=== PATIENT | male | born 1960 | race Caucasian/White ===

== ENCOUNTER → 2016-07-23 | Outpatient (CLI) | payer OTHER | LOC: FLAB 14:39 | PROVIDERS: ATTEND Orthopaedic Surgery Orthopaedic Surgery of the Spine | DX: M47.892 Other spondylosis, cervical region (principal); M46.02 Spinal enthesopathy, cervical region; M41.86 Other forms of scoliosis, lumbar region; M51.36 Other intervertebral disc degeneration, lumbar region ==

== ENCOUNTER 2017-06-06 08:47 | Observation (INO) | payer OTHER ==
--- NOTE | 2017-06-06 08:59 | CPEKG ---
Heart Rate: 75 RR Interval: 800 P-R Interval: 152 QRSD Interval: 86 QT Interval: 372 QTC Interval: 416 P [place]: 62 QRS [place]: 36 T Wave [place]: 33 EKG Severity - NORMAL ECG - EKG Impression: SINUS RHYTHM Electronically Signed By: Santos Garcia 06-Jun-2017 11:02:16
[2017-06-06] MEDS ORDERED: NITROGLYCERIN 0.4 MG BTL SL PRN (09:10)
[2017-06-06 09:15] LABS: PLATELET COUNT 207 10^3/uL (150-400)
--- NOTE | 2017-06-06 09:24 | EDPHY ---
H & P Stated Complaint: c/o mid duke CP with deep breath Time Seen by Provider: 06/06/17 08:52 HPI/ROS: This patient describes abrupt onset of chest pain while inhaling during a conversation while standing at work. This occurred 45 min prior to arrival and he reports the pain has since that time been steady at 3/10 ache but becomes sharp with a deep breath. He also notes that while supine he has increase in pain when he flexes his neck forward. He notes no other exacerbating or alleviating factors. He reports having brief episodes of pain like this in the past the typically resolve within minutes. He has never had ongoing pain of this nature before. His anginal equivalent is left arm ache. He has not had any recent left arm ache. He denies any other associated symptoms except for onset of diaphoresis particularly in his hands this morning. His drove him here by private vehicle for evaluation of the symptoms. ROS: Constitutional: No fevers chills or fatigue. HEENT: No recent URI symptoms. Pulmonary: No cough. No shortness of breath while at rest. Cardiovascular: He reports dyspnea on exertion that is been present for some time with no recent change. No heart palpitations. No leg swelling or pain. Neuro: Patient complains of burning discomfort and paresthesias to his left foot now for weeks. This is moderate discomfort. GI: No nausea or vomiting. No abdominal pain. No recent GERD symptoms Integumentary: Diaphoresis. Endocrine: No complaints Complete review of symptoms otherwise negative. Source: Patient Exam Limitations: No limitations - Personal History Current Tetanus Diphtheria and Acellular Pertussis (TDAP): Yes - Medical/Surgical History PMH: Coronary artery disease with 2 cardiac stents placed by Dr. Champion in 2009. Dyslipidemia Hypertension Paroxysmal AFib Other PMH: HTN, CARDIAC STENTS, MENNEIRE'S DX, GALL BLADDER - Family History Significant Family History: Heart disease - Social History Smoking Status: Never smoked Alcohol Use: None Drug Use: None - Physical Exam Exam: Vital signs are normal exception of hypertension General Appearance: Alert, no distress. Eyes: Pupils equal and round no pallor or injection. ENT, Mouth: Mucous membranes moist. Respiratory: There are no retractions, lungs are clear to auscultation. Cardiovascular: Regular rate and rhythm. No murmur gallop or rub. No JVD or peripheral edema. He has no chest wall tenderness Gastrointestinal: Abdomen is soft and nontender, no masses, bowel sounds normal. Neurological: GCS 15 Skin: Warm and dry, no rashes. Musculoskeletal: Neck is supple nontender. Extremities are symmetrical, full range of motion. Psychiatric: Mood and affect are normal DIFFERENTIAL DIAGNOSIS: After history and physical exam differential diagnosis was considered for pulmonary embolism, PE, pneumonia, pleurisy, coronary syndrome/myocardial ischemic disease, musculoskeletal pain, GERD, aortic dissection Constitutional: Initial Vital Signs Temperature (C) 36.6 C 06/06/17 08:52 Heart Rate 78 06/06/17 08:52 Respiratory Rate 18 06/06/17 08:52 Blood Pressure 169/98 H 06/06/17 08:52 O2 Sat (%) 97 06/06/17 08:52 O2 Delivery Mode Room Air Allergies/Adverse Reactions: No Known Allergies Allergy (Unverified 09/09/14 18:02) Home Medications: Medication Instructions Recorded CARVEDILOL PHOSPHATE [Coreg Cr] 80 mg PO 11/07/11 Clopidogrel Bisulfate [Plavix (RX)] 75 mg PO DAILY 11/07/11 Lisinopril [Zestril 5 mg (RX)] 5 mg PO DAILY 11/07/11 Lovastatin 10 mg PO 11/07/11 Medical Decision Making - Diagnostics EKG Interpretation: 12 lead EKG performed shortly after arrival at 857 reveals sinus rhythm at 75 Intervals: Normal throughout [place]: Normal throughout ST segments: Normal throughout Overall assessment normal EKG Repeat EKG performed at 9:49 a.m. after nitroglycerin to rule out interval change reveals sinus rhythm at 70 Intervals: Normal throughout [place]: Normal throughout ST segments: Normal throughout Overall assessment normal EKG without interval change by my interpretation A 30 EKGs performed shortly prior to the patient's transfer given ongoing chest pain rule out any interval change Sinus rhythm Intervals normal throughout [place]: Normal throughout ST segments: Normal throughout Overall assessment: Normal EKG without interval change by my interpretation Imaging Results: Imaging Impressions Chest X-Ray 06/06/17 09:11 Impression: Normal. Chest/Thorax CTA 06/06/17 09:40 Impression: 1. There is no evidence of aortic aneurysm or dissection. 2. There is no CT evidence of pulmonary artery thromboemboli. 3. LAD coronary artery atherosclerotic calcification. Findings were discussed with ANNETTE WALSH MD at 10:31, on 06/06/2017. Imaging: Discussed imaging studies w/ director call center sales Radiologist (CT angio chest. I also reviewed his these images myself), I viewed and interpreted images myself ( Chest x-ray) ED Course/Re-evaluation: IV, monitor He had 2 adult aspirins prior to arrival Supple nitroglycerin Q 5 min x3 with partial relief of discomfort. He reports that is now mild but persistent-he will put a number on a but says it is less than the 3/10 when he came in though he is still having intermittent pains up to 8/10. Repeat EKG performed at 9:49 a.m. after nitroglycerines reveals no interval change from the 1st EKG by my read with still no EKG evidence acute ischemia. The patient declines further analgesics at 9:50 a.m. but will except trial of Maalox. Given his history of hypertension and atherosclerosis will proceed with CT angio chest to rule out aortic dissection. Patient remains comfortable but does have a mild ongoing discomfort after his CT angio chest. He still declines any further analgesics. I spoke with Laury Woodward, mid-level practitioner with the hospitalist group accepts this patient for transfer to [facility] to Dr. Jimenez to a PCU bed. We also have a page out to cardiology-physician on-call for Dr. Champion, the patient's punch machine operator for consult. Discussion: Patient with pleuritic pain and history of known coronary disease and stents warranting admission for ongoing pain. Remains hemodynamically stable here. I held beta-shilpa given normal pulse and blood pressure after nitrates. We ruled out aortic dissection and PE with CT angiogram. His 1st troponin is normal. Appreciate no ischemic changes on his EKG. Difficult diagnosis for his ongoing pain includes potential atypical anginal pain with early coronary syndrome versus pleurisy or other. Still awaiting a bed at 11:33 a.m.. Patient re-evaluated with 3/10 steady chest discomfort-unchanged substernal location nonradiating with no additional symptoms. The patient now accepts morphine. Will treat him with 5 mg morphine dose and saline bolus for systolic pressure of 100. I spoke with Dr. Heber Randhawa-punch machine operator on-call for Dr. Champion at 11:40 a.m.. He agrees with plan for admission and they will consult in the hospital. - Data Points Laboratory Results: Laboratory Results 06/06/17 09:12 06/06/17 09:12 06/06/17 06/06/17 06/06/17 09:12 09:12 09:12 WBC 5.53 10^3/uL 10^3/uL (3.80-9.50) RBC 5.42 10^6/uL 10^6/uL (4.40-6.38) Hgb 16.4 g/dL g/dL (13.7-17.5) Hct 46.8 % % (40.0-51.0) MCV 86.3 fL fL (81.5-99.8) MCH 30.3 pg pg (27.9-34.1) MCHC 35.0 g/dL g/dL (32.4-36.7) RDW 13.2 % % (11.5-15.2) Plt Count 207 10^3/uL 10^3/uL (150-400) MPV 9.6 fL fL (8.7-11.7) Neut % (Auto) 62.5 % % (39.3-74.2) Lymph % (Auto) 26.8 % % (15.0-45.0) [place] % (Auto) 7.4 % % (4.5-13.0) Eos % (Auto) 2.2 % % (0.6-7.6) Baso % (Auto) 0.7 % % (0.3-1.7) Nucleat RBC Rel Count 0.0 % % (0.0-0.2) Absolute Neuts (auto) 3.46 10^3/uL 10^3/uL (1.70-6.50) Absolute Lymphs (auto) 1.48 10^3/uL 10^3/uL (1.00-3.00) Absolute Monos (auto) 0.41 10^3/uL 10^3/uL (0.30-0.80) Absolute Eos (auto) 0.12 10^3/uL 10^3/uL (0.03-0.40) Absolute Basos (auto) 0.04 10^3/uL 10^3/uL (0.02-0.10) Absolute Nucleated RBC 0.00 10^3/uL 10^3/uL (0-0.01) Immature Gran % 0.4 % % (0.0-1.1) Immature Gran # 0.02 10^3/uL 10^3/uL (0.00-0.10) PT 12.7 SEC SEC (12.0-15.0) INR 0.96 (0.83-1.16) APTT 26.4 SEC SEC (23.0-38.0) D-Dimer 0.38 ug/mLFEU ug/mLFEU (0.00-0.50) Sodium 143 mEq/L mEq/L (135-145) Potassium 4.1 mEq/L mEq/L (3.5-5.2) Chloride 107 mEq/L mEq/L (97-110) Carbon Dioxide 18 mEq/l L mEq/l (22-31) Anion Gap 18 mEq/L H mEq/L (8-16) BUN 15 mg/dL mg/dL (7-23) Creatinine 0.8 mg/dL mg/dL (0.7-1.3) Estimated GFR > 60 Glucose 100 mg/dL mg/dL (70-100) Calcium 8.9 mg/dL mg/dL (8.5-10.4) Troponin I < 0.012 ng/mL ng/mL (0.000-0.034) Medications Given: Nitroglycerin (Nitrostat) 0.4 mg SL Q5M PRN PRN Reason: Chest Pain Last Admin: 06/06/17 09:17 Dose: 0.4 mg Discontinued Medications Al Hydroxide/Mg Hydroxide (Maalox Susp) 30 ml PO EDNOW ONE Stop: 06/06/17 09:57 Last Admin: 06/06/17 10:00 Dose: 30 ml Sodium Chloride (Ns) 1,000 mls @ 0 mls/hr IV ONCE ONE; Wide Open PRN Reason: Protocol Stop: 06/06/17 11:33 Last Admin: 06/06/17 11:59 Dose: 1,000 mls Morphine Sulfate (Morphine) 5 mg IVP ONCE ONE Stop: 06/06/17 11:33 Last Admin: 06/06/17 11:54 Dose: 5 mg Nitroglycerin (Nitro-Bid 2%) 0.5 inch TP EDNOW ONE Stop: 06/06/17 09:45 Last Admin: 06/06/17 09:56 Dose: 0.5 inch Departure - Departure Disposition: [facility] Inpatient Acute Clinical Impression: History of coronary artery stent placement Chest pain Qualifiers: Chest pain type: unspecified Qualified Code(s): R07.9 - Chest pain, unspecified Condition: Fair
[2017-06-06 09:26] LABS: INR 0.96 (0.83-1.16); PROTIME(PATIENT) 12.7 SEC (12.0-15.0)
[2017-06-06] MEDS ORDERED: NITROGLYCERIN 2% 1 GM PACKET TP ONE (09:44)
[2017-06-06] MEDS ORDERED: IOPAMIDOL (ISOVUE 370) 100 ML BTL IV ONE (09:51)
[2017-06-06] MEDS ORDERED: MAG HYDROX/AL HYDROX/SIMETH 30 ML UDCUP PO ONE (09:56)
--- NOTE | 2017-06-06 10:38 | CPEKG ---
Heart Rate: 70 RR Interval: 857 P-R Interval: 156 QRSD Interval: 82 QT Interval: 360 QTC Interval: 389 P [place]: 48 QRS [place]: 27 T Wave [place]: 34 EKG Severity - NORMAL ECG - EKG Impression: SINUS RHYTHM Electronically Signed By: Santos Garcia 06-Jun-2017 11:01:59
[2017-06-06] MEDS ORDERED: NS 1,000 ML IV ONE (11:32)
--- NOTE | 2017-06-06 11:47 | CPEKG ---
Heart Rate: 64 RR Interval: 938 P-R Interval: 156 QRSD Interval: 88 QT Interval: 392 QTC Interval: 405 P [place]: 51 QRS [place]: 20 T Wave [place]: 23 EKG Severity - NORMAL ECG - EKG Impression: SINUS RHYTHM Electronically Signed By: Santos Garcia 06-Jun-2017 13:30:37
[2017-06-06] MEDS ORDERED: ONDANSETRON 4 MG/2 ML VIAL IVP PRN (13:11)
[2017-06-06] MEDS ORDERED: ONDANSETRON DISINTEGRATING 4 MG TAB PO PRN (13:11)
[2017-06-06] MEDS ORDERED: NS 500 ML IV ONE (14:01)
--- NOTE | 2017-06-06 14:14 | PDCARCONS ---
Cardiology Consult Reason for Consult: Chest pain, known CAD. Chief Complaint: Chest pain. Requesting Physician: History of Present Illness: 56-year-old male with known coronary artery disease. He initially presented with angina back in 2009. At that time he underwent PCI and stenting of the LAD by Dr. Rashid Champion. He has been followed regularly by Dr. Champion. Risk factors in addition to his age and gender include hypertension, hyperlipidemia, poor diet and sedentary lifestyle. He is admitted with symptoms of chest discomfort. He states that as part of his new year's resolution he took up an exercise program. Prior to the of the year he was nearly completely sedentary. He has been exercising regularly. He notes that he has significant exertional dyspnea which he notes with walking as well as climbing stairs. He has no resting symptoms and denies orthopnea, PND and cough. Occasionally he does have mild edema. Today he noted the abrupt onset of chest pain. This began about 8 o'clock this morning. He describes a sensation of a sharp pain immediately to the left of his sternum. He feels that he would like to places finger between the ribs and rubbed deeply to try to get some relief. The pain is worse with deep inspiration and occasionally worse when he places his chin toward his chest or rotates his head to 1 side. He also notes a slight pain with cough although he has not have a a regular cough. He has not injured his chest recently. The pain is not provoked with physical activity. There is no positional component. He has not had any fever, chills or sweats. He notes no hemoptysis. This pain is different from the pain that he has had in the past. He has noted occasional episodes of left arm discomfort which is similar to his anginal quality chest pain that he experienced in 2009. The last episode he had of this was in March and prior to that this last summer. These episodes tend to be spontaneous in nature. Because of the discomfort [facility] There he was evaluated. His ECG and cardiac enzymes were negative. He had a chest x-ray and CT scan that were also noted to be normal. Subsequently he has been transferred over to our institution. At the present time he states his pain is nearly completely resolved. History Information - Allergies/Home Medication List Allergies/Adverse Reactions: No Known Allergies Allergy (Unverified 09/09/14 18:02) Home Medications: CARVEDILOL PHOSPHATE [Coreg Cr] 80 mg PO 11/07/11 [Last Taken Unknown] Clopidogrel Bisulfate [Plavix (RX)] 75 mg PO DAILY 11/07/11 [Last Taken Unknown] Lisinopril [Zestril 5 mg (RX)] 5 mg PO DAILY 11/07/11 [Last Taken Unknown] Lovastatin 10 mg PO 11/07/11 [Last Taken Unknown] I have personally reviewed and updated: family history, medical history, social history, surgical history Past Medical History: Coronary artery disease, hypertension, hyperlipidemia, borderline type 2 diabetes mellitus. - Surgical History Reports: no pertinent surgical hx - Family History Positive for: CAD - Social History Smoking Status: Never smoked Alcohol Use: None Drug Use: None JOB Risk Evaluation age greater or equal to 65: no greater or equal to 3 CAD risk factors: yes known CAD(stenosis greater or eqaul to 50%): no ASA use in past 7 days: yes severe angina(greater or equal to 2 episodes in 24hrs): no EKG ST changes greater or equal to 0.5mm: no positive cardiac marker: no Total Score: 2 JOB Score: 8.3% risk Physical Exam Physical Exam: Temp Pulse Resp BP Pulse Ox 36.4 C 73 18 136/91 H 94 06/06/17 12:56 06/06/17 12:56 06/06/17 12:56 06/06/17 12:56 06/06/17 12:56 Constitutional: no apparent distress Ears, Nose, Mouth, Throat: moist mucous membranes Cardiovascular: regular rate and rhythym, no murmur, rub, or gallop Peripheral Pulses: 2+: carotid (R), carotid (L) Respiratory: no respiratory distress, clear to auscultation Gastrointestinal: normoactive bowel sounds, soft, non-tender abdomen Genitourinary: no bladder fullness Skin: warm, normal color, No mottled Musculoskeletal: full muscle strength Neurologic: AAOx3 Psychiatric: interacting appropriately, not anxious, not encephalopathic Lab and Imaging 06/06/17 09:12 06/06/17 09:12 WBC 5.53 10^3/uL (3.80-9.50) 06/06/17 09:12 RBC 5.42 10^6/uL (4.40-6.38) 06/06/17 09:12 Hgb 16.4 g/dL (13.7-17.5) 06/06/17 09:12 Hct 46.8 % (40.0-51.0) 06/06/17 09:12 MCV 86.3 fL (81.5-99.8) 06/06/17 09:12 MCH 30.3 pg (27.9-34.1) 06/06/17 09:12 MCHC 35.0 g/dL (32.4-36.7) 06/06/17 09:12 RDW 13.2 % (11.5-15.2) 06/06/17 09:12 Plt Count 207 10^3/uL (150-400) 06/06/17 09:12 MPV 9.6 fL (8.7-11.7) 06/06/17 09:12 Neut % (Auto) 62.5 % (39.3-74.2) 06/06/17 09:12 Lymph % (Auto) 26.8 % (15.0-45.0) 06/06/17 09:12 [place] % (Auto) 7.4 % (4.5-13.0) 06/06/17 09:12 Eos % (Auto) 2.2 % (0.6-7.6) 06/06/17 09:12 Baso % (Auto) 0.7 % (0.3-1.7) 06/06/17 09:12 Nucleat RBC Rel Count 0.0 % (0.0-0.2) 06/06/17 09:12 Absolute Neuts (auto) 3.46 10^3/uL (1.70-6.50) 06/06/17 09:12 Absolute Lymphs (auto) 1.48 10^3/uL (1.00-3.00) 06/06/17 09:12 Absolute Monos (auto) 0.41 10^3/uL (0.30-0.80) 06/06/17 09:12 Absolute Eos (auto) 0.12 10^3/uL (0.03-0.40) 06/06/17 09:12 Absolute Basos (auto) 0.04 10^3/uL (0.02-0.10) 06/06/17 09:12 Absolute Nucleated RBC 0.00 10^3/uL (0-0.01) 06/06/17 09:12 Immature Gran % 0.4 % (0.0-1.1) 06/06/17 09:12 Immature Gran # 0.02 10^3/uL (0.00-0.10) 06/06/17 09:12 PT 12.7 SEC (12.0-15.0) 06/06/17 09:12 INR 0.96 (0.83-1.16) 06/06/17 09:12 APTT 26.4 SEC (23.0-38.0) 06/06/17 09:12 D-Dimer 0.38 ug/mLFEU (0.00-0.50) 06/06/17 09:12 Sodium 143 mEq/L (135-145) 06/06/17 09:12 Potassium 4.1 mEq/L (3.5-5.2) 06/06/17 09:12 Chloride 107 mEq/L (97-110) 06/06/17 09:12 Carbon Dioxide 18 mEq/l (22-31) L 06/06/17 09:12 Anion Gap 18 mEq/L (8-16) H 06/06/17 09:12 BUN 15 mg/dL (7-23) 06/06/17 09:12 Creatinine 0.8 mg/dL (0.7-1.3) 06/06/17 09:12 Estimated GFR > 60 06/06/17 09:12 Glucose 100 mg/dL (70-100) 06/06/17 09:12 Calcium 8.9 mg/dL (8.5-10.4) 06/06/17 09:12 Troponin I < 0.012 ng/mL (0.000-0.034) 06/06/17 09:12 Visualized and Interpreted Chest x-ray results: Yes Chest X-ray Interpretation: no infiltrate Visualized and Interpreted imaging results: Yes Visualized and Interpreted EKG results: Yes EKG Interpretation: Positive for: normal sinsus rhythm. Negative for: NS ST wave abnormalities, ST elevation Telemetry: Normal sinus rhythm. A/P Assessment: 56-year-old male with known CAD and prior PCI/stenting of the LAD in 2009 who presents now with atypical chest discomfort. He has had several episodes of left-sided sharp well-localized pain which is clearly pleuritic in nature. His workup thus far includes a CT scan and chest x-ray as well as ECG and cardiac enzymes all of which have been normal. I think it is very unlikely that his current presentation represents an acute coronary syndrome. Additionally, an infectious process such as pneumonia, PE, aortic dissection and pneumothorax have all been excluded. At this point I think his pain is either a representation of inflammation of the pleura or pericardium or potentially simply musculoskeletal. He also has symptoms of exertional dyspnea which have been present now for several months since he took up an exercise program. I think this likely represents inactivity and deconditioning. Plan: 1. He will be admitted to telemetry monitored. 2. Will restart his home medications. 3. His pain can be treated with p.r.n. nonsteroidal anti-inflammatory agents or morphine as needed. 4. We will trend his cardiac enzymes. Additionally, we will plan to check inflammatory markers, fasting lipids and hemoglobin A1c. 5. I have ordered an echocardiogram. 6. Depending on the results of the above workup further evaluation may include stress myocardial perfusion imaging or potentially cardiac catheterization.
[2017-06-06] MEDS: ACETAMINOPHEN 325 MG TAB PO PRN (14:42)
--- NOTE | 2017-06-06 14:48 | GHP ---
[f rep st] HISTORY AND PHYSICAL DATE OF ADMISSION: 06/06/2017 CHIEF COMPLAINT: Chest pain. HISTORY OF PRESENT ILLNESS: A 57-year-old male, with a history of coronary artery disease status pos t stenting approximately 10 years ago, who presents with sudden onset of sharp ice pick type pain at the left sternal border. Patient reports that it came on while taking a deep breath at work, spontan eously resolved with expiration. Patient reported recurrence of this ice pick type pain multiple tony es through the course of that hour and then noted some associated palm sweatiness bilaterally. It wa s the combination of these symptoms that prompted his evaluation in the emergency department. He con tinued to have intermittent pain, provoked by deep inspiration or head movements or lateral movement of his neck. During my interview, the patient is chest pain free. Patient reports 2 or 3 episodes o f knot-like arm pain similar to his MD 10 years ago, but less severe. He experienced these episodes associated with exertion. They spontaneously resolved and then did not predictably recur. He report s windlessness with activity but, otherwise, no other exertionally symptoms. Reports lower extremity edema symmetrically at the end of days with travel or a lot of ambulation. Denies any changes in hi s bowel habits. Denies any dysuria, hematuria. Denies recent fevers, chills, upper respiratory infe ctions, cough, runny nose, or sore throat. PAST MEDICAL HISTORY: 1. Coronary artery disease status post stenting. 2. Hypertension. 3. Obesity. 4. Hyperlipidemia. SOCIAL HISTORY: Negative for tobacco. Negative for alcohol. Negative for illicit drugs or marijuan a. FAMILY HISTORY: Positive for heart attack in his sister in her 40s. REVIEW OF SYSTEMS: A 10-point review of systems is negative with the exception of that reported in t he HPI. PHYSICAL EXAMINATION: VITAL SIGNS: Blood pressure 136/91, heart rate 73, respiratory rate 18, 94% o n room air, 36.4. GENERAL: This is a 57-year-old male in no acute distress. HEENT: Notable for mo ist mucous membranes. Eye exam is negative for any icterus. CARDIAC: Patient is regular rate and r hythm. Quiet systolic murmur is appreciated. PULMONARY: Clear to auscultation bilaterally. GASTRO INTESTINAL: Patient is obese. Positive bowel sounds. Nontender to palpation. MUSCULOSKELETAL: No table for 1+ pitting edema bilaterally of the lower extremities to mid thomas. SKIN: Negative for any rashes. NEUROLOGIC: He is alert and oriented x3. PSYCHIATRIC: He is pleasant and cooperative on interview and examination. DATA: White count 5.5, hematocrit 46.8, platelets of 207. Creatinine is 0.8. Troponin less than 0. 012. EKG, which I personally reviewed and interpreted, shows sinus rhythm, normal axis, normal inter vals, with no acute ST-T changes. CTA of the chest, which I personally reviewed and interpreted, sadi ws no pulmonary embolism. Radiology describes the large vessels of the chest as normal. There are a lso no infiltrates or edema. ASSESSMENT AND PLAN: This is a 57-year-old male with coronary artery disease, presenting with chest pain. 1. Acute chest pain by descriptor. Sounds more pleuritic or pericardial in nature, based on breathi ng and movement as a provocation. Initial troponin and EKG are reassuring. However, symptoms did ju st begin approximately 4 hours ago. Will cycle serial troponins. Follow the patient on telemetry. Will check an ESR, CRP to rule out possible pericardial involvement. If the patient rules out this e vening, will order a treadmill Lexiscan in the morning. Will continue his home medications which inc lude Plavix, carvedilol, and lovastatin, as well as lisinopril. 2. Obesity. Suspect, based on symptoms, the patient may have sleep apnea. Have ordered nocturnal s leep study. 3. Hypertension. Patient is currently normotensive. Will continue his low-dose carvedilol and susan nopril once reconciled. 4. Hyperlipidemia. Have ordered lipids for the a.m. 5. Borderline diabetes. Have sent a hemoglobin A1c. 6. Prophylaxis with Lovenox. 7. Diet cardiac. 8. Disposition. I expect in less than 2 midnights if patient rules out and has negative cardiac str ess testing. I have discussed the case with Dr. Randhawa from Cardiology. We will initiate workup this evening and plan on stress testing in the morning if he rules out. /[id number]/MODL
--- NOTE | 2017-06-06 14:59 | ECHO ---
[email or web address] [address] [address] Main: [phone] Fax: Transthoracic Echocardiogram Name: ANNETTE MINER MR#: [id number] Study Date: 06/06/2017 Study Time: 02:17 PM Date of : 1960 Age: 57 year(s) Height: 177.8 cm (70 in.) Weight: 120.2 kg (265 lb.) BSA: 2.35 m2 Gender: Male Examination: Echo Indication: chest pain h/o cad/stents Image Quality: Technically Difficult Contrast: Requested by: Allison Rankin BP: 136 mmHg/91 mmHg Heart Rate: Rhythm: Normal sinus rhythm Indication: chest pain h/o cad/stents Procedure Staff Weight Training Instructor: Keya Graff [facility] Reading Physician: Jesus Elise Requesting Provider: Conclusions: Normal study Measurements: Chambers Valvular Assessment AV/MV Valvular Assessment TV/PV Normal Normal Normal Name Value Range Name Value Range Name Value Range Ao Saundra (MM): 3.2 cm (2.2 cm-3.7 AV Vmax: 1.76 m/s (1 m/s-1.7 PV Vmax: 1.22 m/s (0.6 m/s-0.9 cm) m/s) m/s) IVSd (2D): 0.9 cm (0.6 cm-1.1 AV maxP mmHg ( - ) PV PGmax: 6 mmHg ( - ) cm) LVOT Vmax: 1.22 m/s (0.7 m/s-1.1 LVDd (2D): 3.9 cm (4.2 cm-5.9 m/s) cm) MV E Vmax: 0.72 m/s ( - ) LVDs (2D): 2.6 cm (2.1 cm-4 MV A Vmax: 0.70 m/s ( - ) cm) MV E/A: 1.03 ( - ) LVPWd (2D): 1.0 cm (0.6 cm-1 cm) LVEF (BP): 65 % (>=55 %) RVDd(2D): 4.1 cm (1.9 cm-3.8 cmmm) Continued Measurements: Chambers Valvular Assessment AV/MV Name Value Name Value LADs Lon.0 cm MV DecTime: 197 m/s LA Area: 17.1 cm2 MV E' Septal: 0.09 m/s LA Volume: 43 ml MV E/E' Septal: 7.90 LA Volume Index: 18.3 ml/m2 MV E/E' Lateral: 7.50 Additional Vessels Patient: ANNETTE MINER Study Date: 06/06/2017 Page 1 of 2 02:17 PM Name Value Ao Ascendin.2 cm Findings: Left Ventricle: Normal size left ventricle. Mild concentric LV hypertrophy. Normal global systolic LV function. EF is 65 %. No regional wall motion abnormality. Normal diastolic LV function. Right Ventricle: Normal size right ventricle. Normal RV function. Left Atrium: The left atrium is normal in size. Right Atrium: The right atrium is normal in size. Mitral Valve: The mitral valve is normal in appearance and function. There is no significant mitral valve regurgitation. No mitral stenosis is present. Aortic Valve: The aortic valve is normal in appearance and function. There is no significant aortic valve regurgitation. No aortic valve stenosis is present. Tricuspid Valve: The tricuspid valve is normal in appearance and function. There is no significant tricuspid valve regurgitation. Pulmonary artery pressure is not obtained due to inadequate TR jet. Pulmonic Valve: Pulmonary valve not well visualized. Aorta: The aorta is normal. Normal size aortic root measuring 3.2 cm. Normal size ascending aorta measuring 3.2 cm. IVC: The IVC is normal sized. Pericardium: Trace anterior pericardial effusion versus fat pad. (No Signature Object) Patient: ANNETTE MINER Study Date: 06/06/2017 Page 2 of 2 02:17 PM [id number]
[2017-06-06] MEDS: MELATONIN 3 MG TAB PO SCH (20:57)
[2017-06-07] MEDS: ACETAMINOPHEN 325 MG TAB PO PRN (01:55)
[2017-06-07] MEDS ORDERED: ENOXAPARIN 40 MG/0.4 ML SYR SC SCH (09:00)
[2017-06-07] MEDS ORDERED: REGADENOSON 0.4 MG/5 ML SYR IVP ONE (10:09)
[2017-06-07] MEDS ORDERED: METOPROLOL TARTRATE 5 MG/5 ML INJ IVP ONE (12:34)
[2017-06-07] MEDS: APIXABAN 5 MG TAB PO SCH ×2 (13:35→20:41)
[2017-06-07] MEDS: LISINOPRIL 10 MG TAB PO SCH (13:48)
[2017-06-07] MEDS: CLOPIDOGREL BISULFATE 75 MG TAB PO SCH (13:48)
[2017-06-07] MEDS: PRAVASTATIN SODIUM 40 MG TAB PO SCH (13:48)
--- NOTE | 2017-06-07 14:09 | SOAPPROG ---
GENEVIEVE Progress Note Assessment/Plan: Assessment: 1. Atypical chest discomfort. Historically, his symptoms really were not consistent with angina. I suspect this is most likely a result of a musculoskeletal etiology. His nuclear stress test was normal placing him at low risk for near-term cardiovascular events. 2. Known CAD with previous LAD PCI in 2009. This appears to be stable at the present time. 3. Paroxysmal atrial fibrillation. He is in atrial fibrillation today with marginal rate control. Interestingly, his medications were not reconciled therefore is not on his current Coreg dose. His chads Vasc score is 2 consistent with a 2% annual risk for stroke. He currently takes Plavix 75 mg daily. 4. Hyperlipidemia. He is treated with statin therapy with target lipid control. 5. History of prediabetes. His hemoglobin A1c was under 6. 6. Obesity. Plan: 1. He was started on apixaban 5 mg twice daily. The rationale for starting this medication was discussed with him as well as the risks and benefits. 2. We will plan to continue Plavix however I have asked him not to use aspirin. He will limit his use of nonsteroidal anti-inflammatory agents and try to use Tylenol for pain control. 3. I have increased his Coreg up to 6.25 mg twice daily. He was also given a single dose of IV metoprolol. We will plan to reassess his heart rate control and his symptomatology later today. I think it is very likely that he will be able to be discharged home. 4. 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 Champion within the next week or 2. 06/07/17 14:06 Subjective: He is doing well today. He has not had any further chest discomfort. Unfortunately he did sleep well. Earlier this morning he went into atrial fibrillation with borderline heart rate control. He states that he has a history of atrial fibrillation. Only rarely does he experience palpitations at home. Currently, he has minimal palpitations and no symptoms of fatigue or dyspnea. This arrhythmia also could did not trigger any pain. I have personally reviewed the results of his Lexiscan myocardial perfusion imaging study. This was a normal study. Objective: Vital Signs Temp Pulse Resp BP Pulse Ox 36.4 C 117 H 17 137/87 H 96 06/07/17 11:55 06/07/17 11:55 06/07/17 11:55 06/07/17 11:55 06/07/17 11:55 Laboratory Results 06/06/17 18:42 06/07/17 04:18 06/06/17 06/07/17 06/08/17 05:59 05:59 05:59 Intake Total 1640 Balance 1640 PT 12.7 SEC (12.0-15.0) 06/06/17 09:12 INR 0.96 (0.83-1.16) 06/06/17 09:12 Laboratory Tests 06/06/17 06/06/17 06/06/17 09:12 09:12 18:42 ESR D-Dimer 0.38 Hemoglobin A1c Troponin I < 0.012 < 0.012 C-Reactive Protein < 5.0 Cholesterol LDL Cholesterol, Calc HDL Cholesterol 06/06/17 06/07/17 06/07/17 18:42 04:18 04:18 ESR 6 D-Dimer Hemoglobin A1c 5.2 Troponin I C-Reactive Protein Cholesterol 135 L LDL Cholesterol, Calc 61 L HDL Cholesterol 45 Physical Exam - Physical Exam General Appearance: WD/WN, no apparent distress Neck: non-tender, full range of motion Respiratory: lungs clear Cardiac/Chest: irregularly irregular, No edema, No gallop, No JVD Peripheral Pulses: 2+: carotid (R), carotid (L) Abdomen: normal bowel sounds, non-tender, soft Male Genitalia: deferred Rectal: deferred Neuro/Psych: alert, oriented x 3 ICD10 Worksheet Patient Problems: Problems Problem Status Onset Chest pain Acute History of coronary artery stent placement Acute
--- NOTE | 2017-06-07 14:22 | ASMTCMCOM ---
CM Note CM Note Notes: 06/07/2017 Case Management Note Reviewed chart. There are no case management d/c needs identified d/t pt age, marital status and employment status. There are no PT or OT evals ordered at this time. Case Management d/c poc: independent with follow up as directed. Case Management available if needs change. Date Signed: 06/07/2017 02:22 PM Electronically Signed By:Sandra Queen RN
--- NOTE | 2017-06-07 16:42 | HOSPPROG ---
Hospitalist Progress Note Assessment/Plan: # New Atrial Fibrillation with RVR - developed overnight - pt reports intermittently having this sensation in past TELE (personally reviewed and interpreted) atrial fibrillation 80-180's oxygen saturations 93%on RA - single dose metoprolol 5 mg IV x1 - increasing home carvedilol to 6.25 - starting Eliquis # chest pain- troponin <0.012 x 2 and EKG remain negative overnight - Lexiscan today # coronary artery disease- continue home meds including Plavix, statin, ANTONIETTA- inhibitor and carvedilol # obesity - nocturnal oximetry testing for possible KRISTOPHER # proph - eliquis # diet- cardiac # dispo - > 2MN as requires ongoing monitoring for Atrial Fibrillation I have discussed the case with Dr. Randhawa - we will up titrate carvedilol and monitor on TELE overnight Subjective: denies cp Objective: Vital Signs Temp Pulse Resp BP Pulse Ox 37.1 C 92 17 111/81 H 93 06/07/17 16:00 06/07/17 16:00 06/07/17 16:00 06/07/17 16:00 06/07/17 16:00 Laboratory Results 06/06/17 18:42 06/07/17 04:18 06/06/17 06/07/17 06/08/17 05:59 05:59 05:59 Intake Total 1640 Output Total 300 Balance 1640 -300 PT 12.7 SEC (12.0-15.0) 06/06/17 09:12 INR 0.96 (0.83-1.16) 06/06/17 09:12 - Physical Exam Constitutional: obese Eyes: anicteric sclera Ears, Nose, Mouth, Throat: moist mucous membranes Cardiovascular: regular rate and rhythym Respiratory: no respiratory distress Gastrointestinal: normoactive bowel sounds Genitourinary: no bladder fullness Skin: warm Musculoskeletal: No asymmetric calves Neurologic: AAOx3 Psychiatric: interacting appropriately Lymph, Heme, Immunologic: no cervical LAD ICD10 Worksheet Patient Problems: Problems Problem Status Onset Chest pain Acute History of coronary artery stent placement Acute
[2017-06-07] MEDS: CARVEDILOL 6.25 MG TAB PO SCH (17:51)
--- NOTE | 2017-06-07 18:53 | CPR ---
[f rep st] NONINVASIVE CARDIAC PROCEDURE REPORT DATE OF PROCEDURE: 06/07/2017 PROCEDURE: Lexiscan nuclear stress test. INDICATION: The patient is a 57-year-old male with a history of coronary artery disease status post stenting in 2009. He was at work when he developed sharp left-sided chest discomfort which was worse with deep breaths. He then developed sweaty palms and therefore, proceeded to the emergency room. He is treated for hypertension and hyperlipidemia. He denies any history of diabetes or ongoing tobacco use. Last night, the patient went into atrial fibrillation with rapid ventricular rates and therefore , he had a Lexiscan stress test as opposed to an exercise stress test. PROCEDURE IN DETAIL: Consent was obtained. The patient was placed on continuous telemetry. His resti ng EKG revealed atrial fibrillation with a heart rate of 83 beats per minute. There are nonspecific S T-T wave changes. The patient was infused with Lexiscan, standard dosing, and complained of shortness of breath and flushing with the infusion. He also developed some nausea later in the procedure. He r emained in atrial fibrillation with rates varying from 110-165 beats per minute. There were no signif icant ST-T wave changes. His blood pressure at rest was 118/64 and remained stable throughout the pro cedure. His oxygen saturations remained greater than 95% throughout the procedure, as well. PLAN: Await nuclear images. /[id number]/MODL
[2017-06-07] MEDS: MELATONIN 3 MG TAB PO SCH (20:40)
[2017-06-07] MEDS ORDERED: traZODone 100 MG TAB PO SCH (21:15)
[2017-06-08 07:28] VITALS: O2SAT 94
[2017-06-08] MEDS: LISINOPRIL 10 MG TAB PO SCH (08:42)
[2017-06-08] MEDS: CLOPIDOGREL BISULFATE 75 MG TAB PO SCH (08:42)
[2017-06-08] MEDS: PRAVASTATIN SODIUM 40 MG TAB PO SCH (08:42)
[2017-06-08] MEDS: CARVEDILOL 6.25 MG TAB PO SCH (08:42)
[2017-06-08] MEDS: APIXABAN 5 MG TAB PO SCH (08:42)
[2017-06-08] MEDS ORDERED: METOPROLOL TARTRATE 50 MG TAB PO SCH (09:00)
[2017-06-08] MEDS ORDERED: NON-FORMULARY NEW DRUG (Lovastatin [Lovastatin] 40 MG) PO SCH (09:00)
--- NOTE | 2017-06-08 09:01 | SOAPPROG ---
SOAP Progress Note Assessment/Plan: Assessment: 1. Atypical chest discomfort. Historically, his symptoms really were not consistent with angina. I suspect this is most likely a result of a musculoskeletal etiology. His nuclear stress test was normal placing him at low risk for near-term cardiovascular events. 2. Known CAD with previous LAD PCI in 2009. This appears to be stable at the present time. 3. Paroxysmal atrial fibrillation. He is in atrial fibrillation today with marginal rate control. Interestingly, his medications were not reconciled therefore is not on his current Coreg dose. His chads Vasc score is 2 consistent with a 2% annual risk for stroke. He currently takes Plavix 75 mg daily. 4. Hyperlipidemia. He is treated with statin therapy with target lipid control. 5. History of prediabetes. His hemoglobin A1c was under 6. 6. Obesity. Plan: 1. OK to discharge home today. 2. F/U Champion within 1 week. 3. I have changed him over to metoprolol from Coreg. 06/08/17 09:00 Subjective: He is doing well today. HR's still not well controlled. He is, however, asymptomatic. Objective: Vital Signs Temp Pulse Resp BP Pulse Ox 36.4 C 88 15 131/95 H 94 06/08/17 07:24 06/08/17 07:24 06/08/17 07:24 06/08/17 07:24 06/08/17 07:24 Laboratory Results 06/06/17 18:42 06/07/17 04:18 06/07/17 06/08/17 06/09/17 05:59 05:59 05:59 Intake Total 1640 500 Output Total 450 Balance 1640 50 PT 12.7 SEC (12.0-15.0) 06/06/17 09:12 INR 0.96 (0.83-1.16) 06/06/17 09:12 Physical Exam - Physical Exam General Appearance: WD/WN, no apparent distress Neck: non-tender, full range of motion Respiratory: chest non-tender, lungs clear Cardiac/Chest: irregularly irregular, No edema, No gallop, No JVD Peripheral Pulses: 2+: carotid (R), carotid (L) Abdomen: non-tender, soft Male Genitalia: deferred Rectal: deferred Neuro/Psych: alert, oriented x 3 ICD10 Worksheet Patient Problems: Problems Problem Status Onset Chest pain Acute History of coronary artery stent placement Acute
[2017-06-08] MEDS ORDERED: PNEUMOCOCCAL 0.5ML VACCINE VIAL IM ONE (09:42)
[2017-06-08 11:28] VITALS: BP 112/70; PULSE 115; RESP 18; TEMP 98.5
--- NOTE | 2017-06-08 12:57 | GDS ---
[f rep st] DISCHARGE SUMMARY DISCHARGE DIAGNOSES: 1. Atrial fibrillation with rapid ventricular response. 2. Chest pain. 3. Coronary artery disease. 4. Obesity. PROCEDURES: Myocardial nuclear med scan 06/07/2017. Subtle, apparently fixed defect along the lateral wall. No evidence of reversibility to suggest ischemia. HISTORY OF PRESENT ILLNESS: A 57-year-old male with a history of coronary artery disease, obesity, who presented with a sudden onset of sharp ice pick- like pain in the left sternal border. This came on while taking a deep breath at work and resolved with expiration. He had recurrence of this type of pain multiple times for the next hour and noticed associated palm sweatiness. He complains of lower extremity edema at the end of days with travel and a lot of ambulation. HOSPITAL COURSE BY PROBLEM: 1. Atypical chest pain: Patient underwent a myocardial perfusion scan that was negative for ischemia. 2. New atrial fibrillation with rapid ventricular response: CHADS-VASc score is 2. He was changed from Coreg to metoprolol 50 mg b.i.d. started on Eliquis. 3. Coronary artery disease. Continue Plavix, statin, ANTONIETTA inhibitor, and beta- shilpa. 4. Obesity. Educated on diet and exercise. DISPOSITION: Patient is stable for discharge home. NEW MEDICATIONS: 1. Metoprolol 50 mg b.i.d. 2. Eliquis 5 mg b.i.d. FOLLOWUP: Dr. Randhawa with Cardiology. PHYSICAL EXAM: VITAL SIGNS: Today, temperature 36.9, blood pressure 112/70, heart rate 115, respirations 18, 94% on room air. GENERAL: Sitting up in bed, no acute distress. HEENT: PERRLA. EOMI. Oropharynx clear. CV: Irregularly irregular rhythm. No murmurs, gallops, or rubs. LUNGS: Clear. ABDOMEN: Obese, soft, nontender, nondistended. Positive bowel sounds. : No Sears. MUSCULOSKELETAL: 5/5 upper and lower extremity strength. NEURO: 2 through 12 intact. PSYCH: Alert and oriented x3. /[id number]/MODL MTDD
== END 2017-06-08 13:15 | disposition home or self-care (01) ==
LOC: CED 08:47 → INTOOBSV 10:56 → CEDHOLD 10:56 → F2W 12:50
PROVIDERS: ADMIT Internal Medicine; ATTEND Internal Medicine
PROC: 3E0337Z Introduction of Electrolytic and Water Balance Substance into Peripheral Vein, Percutaneous Approach (ICD-10-PCS; principal; 2017-06-06)
DX: R07.9 Chest pain, unspecified (principal); I48.91 Unspecified atrial fibrillation; I25.10 Atherosclerotic heart disease of native coronary artery without angina pectoris; E86.9 Volume depletion, unspecified; E66.9 Obesity, unspecified; Z68.38 Body mass index [BMI] 38.0-38.9, adult; E78.5 Hyperlipidemia, unspecified; I10 Essential (primary) hypertension; R73.03 Prediabetes; Z95.5 Presence of coronary angioplasty implant and graft; Z82.49 Family history of ischemic heart disease and other diseases of the circulatory system; Z23 Encounter for immunization
CPT/HCPCS: 71046; 71275; 78452; 90471; 93005; 93017; 93306; 96361; 96374; 99285; A9500; G0378; 80048-PO; 84484-PO; 85025-PO; 85378-PO; 85610-PO; 85730-PO; G0009; J1650; J2270; J2405; J2785; Q9967